=== PATIENT | female | born 1980 | race Native Hawaiian/Other Pacific Islander ===

== ENCOUNTER 2016-07-06 14:56 | Outpatient (CLI) | payer OTHER ==
[2016-07-06 15:17] LABS: PLATELET COUNT 184 K/uL (152-353)
[2016-07-06 16:59] LABS: POTASSIUM 4.1 mmol/L (3.6-5.2); SODIUM 139 mmol/L (136-145)
== END 2016-07-06 19:51 | disposition home or self-care (01) ==
LOC: LAB 14:56
PROVIDERS: Nurse Practitioner Family
DX: N92.0 Excessive and frequent menstruation with regular cycle (principal); R53.82 Chronic fatigue, unspecified; R53.81 Other malaise; R63.0 Anorexia; R73.09 Other abnormal glucose
CPT/HCPCS: 80053; 80061; 82672; 83036; 84144; 84402; 84436; 84443; 85027

== ENCOUNTER 2017-01-02 11:13 | Outpatient (CLI) | payer OTHER | END 2017-01-02 19:08 | disposition home or self-care (01) | LOC: RAD 11:13 | DX: R05 Cough (principal) ==

== ENCOUNTER 2017-01-18 15:17 | Outpatient (CLI) | payer OTHER ==
[2017-01-18 15:34] LABS: PLATELET COUNT 204 K/uL (152-353)
[2017-01-18 16:12] LABS: POTASSIUM 4.5 mmol/L (3.6-5.2); SODIUM 140 mmol/L (136-145)
== END 2017-01-18 16:20 | disposition home or self-care (01) ==
LOC: LAB 15:17
PROVIDERS: Nurse Practitioner Family
DX: R63.0 Anorexia (principal); R53.82 Chronic fatigue, unspecified; R53.81 Other malaise; D64.89 Other specified anemias; Z00.00 Encounter for general adult medical examination without abnormal findings; R79.89 Other specified abnormal findings of blood chemistry
CPT/HCPCS: 80053; 80061; 83036; 84436; 84443; 85027

== ENCOUNTER 2017-01-30 08:57 | Outpatient (CLI) | payer OTHER | END 2017-01-30 18:55 | disposition home or self-care (01) | LOC: RAD 08:57 | DX: R07.81 Pleurodynia (principal) ==

== ENCOUNTER 2017-10-17 12:27 | Emergency (ER) | payer OTHER ==
[~2017-10-17] VITALS: Ht 172.7 cm; Wt 46.7 kg
[2017-10-17 12:30] VITALS: TEMP 99.5
[2017-10-17 15:39] VITALS: BP 95/65
== END 2017-10-17 15:40 | disposition home or self-care (01) ==
LOC: ED 12:27
DX: G43.909 Migraine, unspecified, not intractable, without status migrainosus (principal); J32.9 Chronic sinusitis, unspecified
CPT/HCPCS: 96372; 99283; J0696; J2405; J3030

== ENCOUNTER 2018-11-11 15:46 | Outpatient (CLI) | payer OTHER ==
[2018-11-11 16:35] LABS: PLATELET COUNT 176 K/uL (152-353)
== END 2018-11-11 22:55 | disposition home or self-care (01) ==
LOC: LAB 15:46
PROVIDERS: Family Medicine
DX: R53.82 Chronic fatigue, unspecified (principal); R63.4 Abnormal weight loss; R10.13 Epigastric pain
CPT/HCPCS: 80053; 82306; 82607; 82747; 84439; 84443; 84481; 85027; 86318

== ENCOUNTER 2018-11-14 08:15 | Outpatient (CLI) | payer OTHER | END 2018-11-14 23:48 | disposition home or self-care (01) | LOC: CT 08:15 | DX: G43.709 Chronic migraine without aura, not intractable, without status migrainosus (principal); R63.4 Abnormal weight loss ==

== ENCOUNTER 2019-01-14 10:56 | Outpatient (CLI) | payer OTHER | END 2019-01-14 20:12 | disposition home or self-care (01) | LOC: MRI 10:56 | DX: M62.81 Muscle weakness (generalized) (principal); G45.9 Transient cerebral ischemic attack, unspecified ==

== ENCOUNTER 2020-07-12 11:20 | Outpatient (CLI) | payer OTHER ==
[2020-07-12 12:06] LABS: PLATELET COUNT 178 K/uL (152-353)
[2020-07-12 12:32] LABS: POTASSIUM 3.4 mmol/L (3.6-5.2)
== END 2020-07-12 19:22 | disposition home or self-care (01) ==
LOC: LABW 11:20
PROVIDERS: ATTEND Physician Assistant
DX: M35.9 Systemic involvement of connective tissue, unspecified (principal)
CPT/HCPCS: 36415; 80069; 81374; 84443; 85027; 85652; 86038; 86060; 86140; 86618

== ENCOUNTER 2020-10-21 02:23 | Emergency (ER) | payer OTHER ==
[~2020-10-21] VITALS: Ht 172.7 cm; Wt 48.1 kg
[2020-10-21 03:40] VITALS: BP 115/72; TEMP 98.4
== END 2020-10-21 03:40 | disposition home or self-care (01) ==
LOC: ED 02:23
DX: S20.369A Insect bite (nonvenomous) of unspecified front wall of thorax, initial encounter (principal); S30.861A Insect bite (nonvenomous) of abdominal wall, initial encounter; W57.XXXA Bitten or stung by nonvenomous insect and other nonvenomous arthropods, initial encounter; Y92.098 Other place in other non-institutional residence as the place of occurrence of the external cause
CPT/HCPCS: 96372; 99282; J1020

== ENCOUNTER 2021-01-05 08:53 | Outpatient (CLI) | payer OTHER | END 2021-01-05 19:01 | disposition home or self-care (01) | LOC: US 08:53 | PROVIDERS: ATTEND Nurse Practitioner Family | DX: R10.9 Unspecified abdominal pain (principal) ==

== ENCOUNTER 2021-02-08 09:00 | Outpatient (CLI) | payer OTHER | END 2021-02-08 21:18 | disposition home or self-care (01) | LOC: CT 09:00 | PROVIDERS: ATTEND Nurse Practitioner Family | DX: M54.2 Cervicalgia (principal); M54.30 Sciatica, unspecified side ==

== ENCOUNTER 2021-05-17 11:54 | Emergency (ER) | payer OTHER ==
[~2021-05-17] VITALS: Ht 172.7 cm; Wt 48.1 kg
[2021-05-17 11:54] VITALS: BP 113/72; TEMP 98.6
[2021-05-17 12:24] LABS: PLATELET COUNT 154 K/uL (152-353)
== END 2021-05-17 16:40 | disposition home or self-care (01) ==
LOC: ED 11:54
PROVIDERS: Hospitalist
DX: F32.A Depression, unspecified (principal); F41.8 Other specified anxiety disorders; Z20.822 Contact with and (suspected) exposure to COVID-19
CPT/HCPCS: 80053; 80307; 80320; 80329; 81000; 85027; 87635; 93005; 99283; U0003

== ENCOUNTER 2021-07-08 09:21 | Outpatient (CLI) | payer OTHER | END 2021-07-08 20:50 | disposition home or self-care (01) | LOC: MRI 09:21 | PROVIDERS: ATTEND Psychiatry & Neurology Neurology | DX: R29.90 Unspecified symptoms and signs involving the nervous system (principal) ==

== ENCOUNTER 2022-04-17 10:53 | Outpatient (CLI) | payer OTHER | END 2022-04-17 21:37 | disposition home or self-care (01) | LOC: RAD 10:53 | PROVIDERS: ATTEND Nurse Practitioner Family | DX: M06.4 Inflammatory polyarthropathy (principal); M54.2 Cervicalgia; M54.51 Vertebrogenic low back pain; M54.6 Pain in thoracic spine ==

== ENCOUNTER 2022-05-19 09:15 | Emergency (ER) | payer OTHER ==
[~2022-05-19] VITALS: Ht 172.7 cm; Wt 47.2 kg
[2022-05-19 10:27] VITALS: BP 107/34; TEMP 98.9
== END 2022-05-19 10:27 | disposition home or self-care (01) ==
LOC: ED 09:15
DX: N30.91 Cystitis, unspecified with hematuria (principal)
CPT/HCPCS: 81000; 87077; 87086; 87088; 87186; 99283; J1885